=== PATIENT | male | born 1980 | race Caucasian/White ===

== ENCOUNTER 2019-05-27 06:00 | Outpatient (CLI) | payer OTHER ==
[2019-05-27] MEDS ORDERED: ZANTAC150 M3 (09:55)
[2019-05-27] MEDS ORDERED: HUMULIN 70100 UNIT/2 (09:59)
[2019-05-27] MEDS ORDERED: NORVASC5 MG PO (10:00)
== END 2019-05-27 06:05 | disposition home or self-care (01) ==
LOC: LAB 06:00 → ADM 07:45 → CIR.AMB 06-03 05:30 → EDSTATUS 06-10 07:45
DX: N47.1 Phimosis (principal); Z01.818 Encounter for other preprocedural examination

== ENCOUNTER 2019-11-04 05:27 | Day surgery (SDC) | payer OTHER ==
[~2019-11-04 05:27] MED LIST: HUMULIN 70100 UNIT/2; NORVASC5 MG PO; VASERETIC 10-21 EACH PO; ZANTAC150 M3 PO
== END 2019-11-04 16:45 | disposition home or self-care (01) ==
LOC: CIR.AMB 05:27 → ADM 07:45 → CIR.AMB 16:45
DX: N47.6 Balanoposthitis (principal)